=== PATIENT | female | born 1945 | race Caucasian/White ===

== ENCOUNTER 2018-01-13 15:57 | Emergency (ER) | payer OTHER ==
[~2018-01-13] VITALS: Ht 160 cm; Wt 62.6 kg
[~2018-01-13 15:57] MED LIST: APAP/HYDROCODON1 T13 PO; COL100 PO; LEVOTHYROXIN0.025 M2; MEDDP PO; NORCO1 TA1 PO; PRI20 PO; ROB750 PO; TORADOL10 MG PO
[2018-01-13 16:01] VITALS: Ht 160 cm; Wt 62.6 kg
[2018-01-13 17:05] LABS: BASOPHIL % 1.3 % (0-2); PLATELET COUNT 363 x10^3mcL (130-400)
[2018-01-13 17:21] LABS: CALCIUM 9.2 mg/dL (8.5-10.1); CARBON DIOXIDE 27.8 mmol/L (21-32); CHLORIDE SERUM 104 mmol/L (98-107); CREATININE SERUM 0.7 mg/dL (0.6-1.0); GLUCOSE SERUM 81 mg/dL (74-106); SODIUM SERUM 140 mmol/L (136-145)
[2018-01-13 17:27] LABS: ALKALINE PHOSPHATASE 91 U/L (46-116); ALT/SGPT 37 U/L (14-59); AST/SGOT 32 U/L (15-37); T3 TOTAL 0.94 ng/mL
[2018-01-13 17:30] LABS: ALBUMIN 3.1 g/dL (3.4-5.0)
[2018-01-13 17:47] LABS: FREE T4 1.17 ng/dL (0.76-1.46); FREE THYROXINE INDEX 4.2 ug/dL (1.4-4.5); T4(THYROXINE) 11.9 ug/dL (4.7-13.3)
[2018-01-13 22:15] VITALS: BP 133/88
== END 2018-01-13 22:15 | disposition home or self-care (01) ==
LOC: ED 15:57
PROVIDERS: Emergency Medicine
DX: C34.92 Malignant neoplasm of unspecified part of left bronchus or lung (principal)
CPT/HCPCS: 36415; 83880; 84439; Q0092; Q9967